=== PATIENT | female | born 1950 | race Caucasian/White ===

== ENCOUNTER 2017-02-14 10:34 | Emergency (ER) | payer MEDICARE, BC ==
[2017-02-14] MEDS ORDERED: NITROGLYCERIN 0.4 MG/TAB BTL SL PRN (10:42)
--- NOTE | 2017-02-14 10:55 | ERNOTE ---
Syncope ER HPI Date of Service: 02/14/17 Stated Complaint: SYNCOPE Time Seen by Provider: 02/14/17 10:40 Source: patient Exam Limitations: no limitations Allergies/Adverse Reactions: Allergies Sulfa (Sulfonamide Antibiotics) Allergy (Unknown, Verified 02/14/17 11:20) Other Home Medications: HOME MEDICATIONS Venlafaxine HCl [Effexor Xr] 300 mg PO DAILY 02/14/17 [Last Taken Unknown] - History of Present Illness Narrative: Pt. comes in after having a syncopal episode on the toilet. Pt. was having a Bm and states that she became dizzy and fell off of the toilet and when she awoke she noted that her neck hurt and she is unsure if she hit her head and was nauseated and had chest pain with L arm pain. All pain except neck pain is resolved at this time. Pt. states that movement exacerbates all symptoms and nothing alleviates them. Review of Systems - Review of Systems Constitutional: Present: diaphoresis, weakness, fatigue. Absent: recent illness , fever, chills, malaise EYE: Present: no symptoms reported ENT: Present: no symptoms reported Respiratory: Present: no symptoms reported. Absent: shortness of breath, cough , wheezing Cardiology: Present: chest pain, syncope. Absent: palpitations, edema, claudication Gastrointestinal/Abdominal: Present: nausea. Absent: vomiting, diarrhea, constipation, abdominal pain Musculoskeletal: Present: neck pain Skin: Present: no symptoms reported. Absent: rash, change in hair/nails Neurological: Present: no symptoms reported. Absent: headache, dizziness/light- headedness, numbness, tingling Endocrine: Present: no symptoms reported All Other Systems: All systems neg except as marked - Patient's Past Medical History Patient History - Medical: No pertinent hx Physical Exam - Physical Exam General Appearance: Present: wd/wn, alert, no apparent distress Head Exam: Present: normal inspection, no evidence of injury Eye Exam: Normal inspection: bilateral, PERRL: bilateral, EOMI: bilateral Ears, Nose, Throat: Present: normal ENT inspection, normal pharynx Neck: Present: supple, limited range of motion - flexion, roation, and lateral flexion, tender posterior midline - C6-C7. Absent: lymphadenopathy (R), lymphadenopathy (L) Respiratory: Present: no respiratory distress, normal breath sounds, no accessory muscle use, chest nontender, lungs clear. 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 Absent: pallor, skin rash ED Progress - Date and Time Seen: Date and Time: 02/14/17 11:52 Discussed fracture with pt and she has a son in law who is a neuro surgeon where she is from in [place] and she would like to discuss with him prior to making decisions. 02/14/17 12:15 Discussed with Kade vaca. son in law and he agrees with my treatment plan of sending pt. to [facility] for MRI as pt. prefers [facility] rather than [facility] and is aware that she may have to pay privately for the transfer as [facility] is not the closest appropriate facility. 02/14/17 12:[address] Lozano and he accepts transfer of pt. - Results and Orders Patient's Lab Results:: I have reviewed the patient's lab results. - Vital Signs Patient's Vital Signs:: I have reviewed the patient's vital signs. - EKG EKG: RBBB, nonspecific ST T wave changes, other - 1st degree AVB EKG read: Reviewed by me - X-Ray X-Ray #1 X-Ray: chest Interpretation: Reviewed by me X-ray Comments: Increased lung markings with R mid lung scarring. - CT/Ultrasound CT/Ultrasound Narrative: CT c-spine notable for incidental pulmonary nodule and C6 teardrop vertebral body fracture. Ct head without any abnormality - Progress/Reassessment Progress:: Unchanged Departure Clinical Impression: C6 cervical fracture Qualifiers: Encounter type: initial encounter Fracture type: closed Fracture morphology: other fracture Fracture alignment: nondisplaced Qualified Code(s): S12.591A - Other nondisplaced fracture of sixth cervical vertebra, initial encounter for closed fracture Chest pain Qualifiers: Chest pain type: other chest pain Qualified Code(s): R07.89 - Other chest pain ; R07.8 - Other chest pain Syncope Qualifiers: Syncope type: vasovagal syncope Qualified Code(s): R55 - Syncope and collapse - Departure Disposition: [facility] Condition: Serious
[2017-02-14 10:57] LABS: Hematocrit 39.3 % (37.0-47.0); Hemoglobin 13.2 gm/dL (12.5-16.0); Mean Cell Volume 85.1 fl (78-100); Mean Corpuscular Hemoglobin 28.6 pg (27-31); Mean Corpuscular Hgb Conc 33.6 g/dl (32-36); Mean Platelet Volume 9.5 fl (6.0-9.5); Neutrophil # 2.7 K/mm3 (1.3-6.0); Neutrophil % 54.5 % (42-75.0); Platelet Count 258 K/mm3 (150-450); Red Blood Count 4.62 M/mm3 (4.2-5.4); Red Cell Distribution Width 13.3 % (11.5-14.0); White Blood Count 4.9 K/mm3 (4.0-10.5)
[2017-02-14 11:06] LABS: INR 0.96 INR (0.90-1.10); Partial Thrombolplastin Time 25.8 Seconds (24-32); Prothrombin Time (Patient) 9.6 Seconds (9.0-11.0)
[2017-02-14 11:14] LABS: ALT 21 U/L (19-67); AST 21 U/L (0-48); Albumin * 3.5 gm/dl (3.4-5.0); Alkaline Phosphatase * 90 U/L (50-170); Anion Gap 18.1 mmol/L (6.8-13.8); BUN/Creatinine Ratio 17.6 (9.0-21.6); Bilirubin, Total 0.4 mg/dL (0.0-1.1); Blood Urea Nitrogen 12 mg/dL (3-23); Ca. Corrected For Albumin 9.5 mg/dL (8.4-10.2); Calcium * 9.4 mg/dL (7.9-10.9); Carbon Dioxide 20.6 mmol/L (24-32.6); Chloride 104 mmol/L (97-106); Glucose * 147 mg/dL (70-110); Potassium 3.7 mmol/L (3.4-4.6); Sodium 139 mmol/L (132-142); Total Protein 7.5 gm/dL (6.2-8.2); Troponin I Less than 0.017 ng/ml (0.00-0.10)
[2017-02-14 13:02] LABS: Urine Bilirubin Negative (NEGATIVE); Urine Blood Negative /ul (NEGATIVE); Urine Ketone Negative (NEGATIVE); Urine Nitrite Negative (NEGATIVE); Urine Protein Negative (NEGATIVE); Urine Urobilinogen Normal (NORMAL)
[2017-02-14 13:06] LABS: Urine Amorphous Sediment Few - 1+ (NONE-FEW); Urine Appearance Clear; Urine Bacteria None Seen; Urine Color Yellow; Urine RBC None Seen /hpf (0-5); Urine WBC None Seen /hpf (0-5)
[2017-02-14 13:10] VITALS: BP 144/74
== END 2017-02-14 13:20 | disposition short-term general hospital (02) ==
LOC: ER 10:34
PROC: 0T9B70Z Drainage of Bladder with Drainage Device, Via Natural or Artificial Opening (ICD-10-PCS; principal; 2017-02-14)
DX: S12.591A Other nondisplaced fracture of sixth cervical vertebra, initial encounter for closed fracture (principal); R07.89 Other chest pain; R55 Syncope and collapse; W18.12XA Fall from or off toilet with subsequent striking against object, initial encounter